=== PATIENT | male | born 1940 | race Caucasian/White ===

== ENCOUNTER 2017-01-30 06:38 | Day surgery (SDC) | payer MEDICARE, BC ==
[~2017-01-30 06:38] MED LIST: Buffered Lidocaine 0.9% SYRIN* 5 ML/SYR SYRINGE INTRADERM ONE
[2017-01-30] MEDS ORDERED: ceFAZolin 2 GM PREMIX (*) 50 ML IVPB ONE (06:55)
[2017-01-30] MEDS ORDERED: Lidocaine 1% INJ* 10 MG/ML 30 ML SDV ONE (07:26)
[2017-01-30] MEDS ORDERED: Bupivacaine 0.5% SDV PF* 30 ML VIAL ONE (07:26)
[2017-01-30] MEDS ORDERED: Propofol* 10 MG/ML 20 ML BTL IV PUSH ONE (07:52)
[2017-01-30] MEDS ORDERED: Lidocaine 2% PF * 5 ML VIAL ONE (07:52)
[2017-01-30 08:31] VITALS: BP 142/73
--- NOTE | 2017-01-30 19:16 | OP ---
DATE OF OPERATION: 01/30/17 [facility] DATE OF : 40 SURGEON: Kash Lopez DPM. CHEMICAL PLANT OPERATOR: None. ANESTHESIOLOGIST: Jeevan Galvan MD ANESTHESIA: MAC with local. PRE-OP DIAGNOSIS: Painful chronic severe second right hammertoe. POST-OP DIAGNOSIS: Painful chronic severe second right hammertoe. OPERATIVE PROCEDURE: Amputation second right toe. PATHOLOGY: Amputated second right toe. HEMOSTASIS: Pneumatic ankle tourniquet. ESTIMATED BLOOD LOSS: Less than 30 cc. INDICATIONS: The patient with chronic right forefoot pain and deformity with bunion and a dislocated and overlapping second right hammertoe causing pain walking and wearing shoes. Rather than addressing all the other deformities in the foot, given his age and required recovery associated with those procedures, the patient opts to have the second right toe amputated. DESCRIPTION OF PROCEDURE: The patient was brought to the operating room, placed on the operating table in the supine position. The anesthesia department administered IV sedation and a peripheral nerve block was performed about the right foot with a 1:1 mixture of 1% lidocaine plain and 0.5% Marcaine plain. The right foot was then prepped and draped in the usual fashion. The right foot was then exsanguinated with an Esmarch bandage. A pneumatic ankle tourniquet was inflated to 250 mmHg above a well-padded right ankle. Attention was directed to the base of second right toe where two semielliptical incisions were made and dissection was carried through subcutaneous tissue towards the base of the second digit and small bleeders were cauterized as needed. With the joint exposed, the second toe was disarticulated to the metatarsophalangeal joint and the toe was sent off the field. The surgical site was flushed with copious amounts of normal sterile saline and then tendinous structures were reapproximated with 4-0 Polysorb. Subcutaneous tissues were reapproximated with 4-0 Polysorb and skin was reapproximated with 4-0 and 5-0 nylon. The surgical site was then dressed with a Xeroform gauze and a slightly bulky sterile mild decompressive dressing was applied to the right foot with 4x4 gauze , Wil, ABD pad, Kerlix and Coban. The pneumatic ankle tourniquet was deflated prior to covering the toes and there was noted to be prompt hyperemic responses in all the remaining toes of the right foot. Having appeared to have tolerated the procedures and anesthesia well, the patient was transported via the cart from the operating room to Recovery in satisfactory condition. [id number]/[facility] #: [id number] MTDD
== END 2017-01-30 08:46 | disposition home or self-care (01) ==
LOC: OREAST 06:38
PROVIDERS: ATTEND Podiatrist Foot Surgery
DX: M20.41 Other hammer toe(s) (acquired), right foot (principal); S93.124A Dislocation of metatarsophalangeal joint of right lesser toe(s), initial encounter; X58.XXXA Exposure to other specified factors, initial encounter; M21.611 Bunion of right foot
CPT/HCPCS: J0690; J2001; J2704